=== PATIENT | male | born 1985 | race Caucasian/White ===

== ENCOUNTER 2016-07-26 00:22 | Emergency (ER) | payer OTHER ==
[~2016-07-26] VITALS: Ht 170.2 cm; Wt 65.8 kg
[2016-07-26] MEDS ORDERED: [UNRECOGNIZED DRUG - OTHER] (00:41)
[2016-07-26] MEDS ORDERED: [UNRECOGNIZED DRUG - OTHER] PO (00:41)
[2016-07-26] MEDS ORDERED: BENA25TA9 PO (00:41)
[2016-07-26] MEDS ORDERED: MULTIVITAMIN -ADULT INJECTION 10 ML, THIAMINE INJection 100 MG, FOLIC ACID 1 MG in NS 1... IV ONE (01:00)
[2016-07-26] MEDS ORDERED: PHENobarbital INJ 65 MG/ML VIAL (J2560) IV ONE ×2 (01:15→02:15)
[2016-07-26 01:31] LABS: BASO % 0.5 % (0.0-1.0); EOS # 0.4 K/mm3 (0.0-0.50); EOS % 3.4 % (0.0-3.0); LARGE UNSTAINED CELL # 0.2 K/mm3 (0.0-0.4); LARGE UNSTAINED CELL % 1.3 % (0.0-4.0); LYMPH # 2.1 K/mm3 (1.5-4.5); LYMPH % 17.5 % (24.0-44.0); MEAN CORPUSCULAR HEMOGLOBIN 32.8 pg (27.0-33.0); MEAN CORPUSCULAR HGB CONC 35.3 g/dl (32.0-36.5); MEAN CORPUSCULAR VOLUME 92.8 fl (80.0-96.0); MONO # 0.7 K/mm3 (0.0-0.8); MONO % 6.6 % (0.0-5.0); NEUTROPHILS # 7.9 K/mm3 (1.8-7.7); NEUTROPHILS % 70.6 % (36.0-66.0); PLATELET COUNT, AUTOMATED 236 k/mm3 (150-450); WHITE BLOOD COUNT 11.2 K/mm3 (4.0-10.0)
[2016-07-26 01:41] LABS: ALBUMIN 3.8 GM/DL (3.2-5.2); ALBUMIN/GLOBULIN RATIO 1.15 (1.00-1.93); ALKALINE PHOSPHATASE 100 U/L (45-117); ALT/SGPT 78 U/L (12-78); AMYLASE 68 U/L (25-115); ANION GAP 9 MEQ/L (8-16); AST/SGOT 71 U/L (15-37); BILIRUBIN,DIRECT 0.3 MG/DL (0.0-0.2); BILIRUBIN,TOTAL 0.7 MG/DL (0.2-1.0); BLOOD UREA NITROGEN 5 MG/DL (7-18); CALCIUM LEVEL 8.5 MG/DL (8.5-10.1); CARBON DIOXIDE LEVEL 26 MEQ/L (21-32); CHLORIDE LEVEL 105 MEQ/L (98-107); CREATININE FOR GFR 0.86 MG/DL (0.70-1.30); GLOMERULAR FILTRATION RATE > 60.0 (>60); GLUCOSE, FASTING 107 MG/DL (70-105); POTASSIUM SERUM 3.5 MEQ/L (3.5-5.1); SODIUM LEVEL 140 MEQ/L (136-145); TOTAL PROTEIN 7.1 GM/DL (6.4-8.2)
[2016-07-26 03:31] VITALS: BP 122/78
== END 2016-07-26 03:33 | disposition home or self-care (01) ==
LOC: EDBD 00:22 → M ED 02:05
DX: F10.239 Alcohol dependence with withdrawal, unspecified (principal)
CPT/HCPCS: 36415; 80048; 80076; 82150; 83690; 85025; 96374; 96376; 99283; G0480; J2560; J3411